=== PATIENT | female | born 1945 | race Caucasian/White ===

== ENCOUNTER 2016-12-09 09:59 | Emergency (ER) | payer OTHER, MEDICARE ==
--- NOTE | 2016-12-09 10:51 | UCPHY ---
H & P Time Seen by Provider: 12/09/16 10:29 Patient Type: New HPI/ROS: CHIEF COMPLAINT: Bruising HISTORY OF PRESENT ILLNESS: 71-year-old female fell a 2 days ago getting out of her mobile home. Patient clearly describes a mechanical trip and fall on the steps as she was leaving the motor home. She fell striking her right knee and right elbow. No head injury. No loss of consciousness. Acting normal since then. Patient is on Coumadin secondary to atrial flutter. She also is on amiodarone. She denies any chest pain, palpitations, lightheadedness, dizziness prior to the fall. She has been ambulatory with moderate pain in her knee since the fall. However, she does increased swelling as well as ecchymosis developing onto her right ankle and right wrist since the fall. Of note, patient's INR was reported at 2.8 6 days ago. No fever, chills, chest pain, shortness of breath, palpitations, vomiting, diarrhea, urinary complaints, headache, lightheadedness. REVIEW OF SYSTEMS: Aside from elements discussed in the HPI, a comprehensive 10-point review of systems was reviewed and is negative. PAST MEDICAL HISTORY: atrial flutter, COPD, sleep apnea, SOCIAL HISTORY: . Primary care physicians are in [place] as well as [facility]. Patient does have a daughter who lives in [place] and will be staying with her. VITAL SIGNS: Reviewed by me; see NN. GENERAL: Well-developed, well-nourished, in no acute distress. HEENT: Head: Atraumatic, normocephalic. Face: Atraumatic. Oropharynx: No trauma, normal occlusion. Neck: Nontender to palpation, no pain with range of motion, no adenopathy. CHEST: Nontender, no subcutaneous air palpable. LUNGS: Clear to auscultation bilaterally, breath sounds are equal. CARDIAC: irregularly irregular, no rubs, murmurs or gallops. ABDOMEN: Soft, moderately obese, nontender, nondistended, bowel sounds normal. BACK: No CVA tenderness, no spinal tenderness. EXTREMITIES: right elbow: Abrasion on the proximal ulna. Area of soft tissue swelling on the proximal ulna. No bony tenderness appreciated. Full range of motion at the elbow with minimal discomfort. Right shoulder is atraumatic. Right wrist has ecchymosis along the volar aspect but no tenderness, swelling, or difficulty with range of motion. Right knee: Significant swelling and ecchymosis present over the medial tibial plateau. No obvious instability of the knee. Mild tenderness along the tibial plateau. No patellar tenderness. Right ankle: Ecchymosis is developing along the inferior medial malleoli as well as on the lateral foot. No bony tenderness or ligamentous instability of the right ankle. PULSES: 2+ and equal throughout. NEURO: Alert and oriented x3, grossly nonfocal. SKIN: Warm and dry, no rash. Smoking Status: Former smoker Constitutional: Initial Vital Signs Temperature (C) 36.6 C 12/09/16 10:17 Heart Rate 62 12/09/16 10:17 Respiratory Rate 20 12/09/16 10:17 Blood Pressure 145/87 H 12/09/16 10:17 O2 Sat (%) 95 12/09/16 10:17 O2 Delivery Mode Room Air Allergies/Adverse Reactions: latex Allergy (Verified 12/09/16 10:14) Home Medications: Medication Instructions Recorded Acyclovir 12/09/16 Ambien 12/09/16 Amiodarone HCl 12/09/16 CRANBERRY 12/09/16 Calcium + D3 ER Tablet 12/09/16 Fish Oil 12/09/16 Glucosam HCl/MSM/Chondro Ely A 12/09/16 Hydrocodone/APAP 5/325 [Alligator 1 tab PO Q6H PRN #10 tab 12/09/16 5/325 (RX)] Levothyroxine 12/09/16 Multivitamin (*) 12/09/16 Omeprazole 12/09/16 Simvastatin 12/09/16 Vitamin C 12/09/16 Warfarin Sodium 12/09/16 traMADol 12/09/16 Medical Decision Making ED Course/Re-evaluation: INR was ordered. Patient had an x-ray of the right elbow and the right knee. I believe the ecchymosis around the right ankle and right wrist are secondary to dependent spread of patient's bleeding. Patient's INR is 2.4. Patient should continue taking her Coumadin as usual. Ice to the affected areas. Expect dependent ecchymosis to developed. Departure - Departure Disposition: Home, Routine, Self-Care Clinical Impression: Contusion of elbow, right, Abrasion of elbow, right, Contusion of right knee Condition: Good Instructions: Contusion in Adults (ED), Knee Pain (ED) Additional Instructions: Mainstay of therapy is rest, ice, immobilization, elevation, and Tylenol for pain. Apply ice for 20-30 minutes every 2-3 hours for the next 48 hours. Please take Tylenol 650-1000mg every 4-6 hours for pain. Okay to use hydrocodone as needed for severe pain. You may follow up with the anticoagulation clinic next week. Your INR today was 2.4 Referrals: NONE *PRIMARY CARE P,. [Primary Care Provider] - As per Instructions Josie Lam MD [[facility] [place] Primary Care Provider] - As per Instructions Prescriptions: Hydrocodone/APAP 5/325 [Alligator 5/325 (RX)] 1 tab PO Q6H PRN #10 tab PRN Reason: Pain - PQRS PQRS Measurement: 134: Depression screening and followup, PRIME MD-PHQ2 (12 years and older) Over the last 2 weeks, how often have you been bothered by any of the following problems? 1. Feeling down, depressed, or hopeless? 2. Little interest or pleasure in doing things? Patient answered no to both 1 and 2 130: Documentation of medications. Reviewed all patient medications, doses, route and frequency. 226: Do you smoke? No. 47: 65 and older: Advanced care planning. Patient designates surrogate decision maker as spouse. 51: 18 years old and older with diagnosis of COPD, spirometry performance. Spirometry not performed; equipment not available. 52: 18 years old and older with COPD and symptoms of COPD or FEV1<60% predicted prescribed a B Agonist. Spirometry not performed; equipment not available.
[2016-12-09 10:53] LABS: INR 2.4 (0.83-1.16)
[2016-12-09 11:51] VITALS: BP 150/75; PULSE 54; RESP 18; TEMP 99; O2SAT 93
== END 2016-12-09 12:31 | disposition home or self-care (01) ==
LOC: CED 09:59
DX: S50.01XA Contusion of right elbow, initial encounter (principal); S80.01XA Contusion of right knee, initial encounter; S50.311A Abrasion of right elbow, initial encounter; W19.XXXA Unspecified fall, initial encounter
CPT/HCPCS: 73080; 73564; G0463; 85610-PO